=== PATIENT | female | born 1980 | race Caucasian/White ===

== ENCOUNTER 2016-10-30 17:59 | Inpatient (IN) | payer OTHER ==
[2016-10-30 20:18] LABS: Hematocrit 34 % (35-47); Hemoglobin 11.5 g/dl (12.0-16.0); Mean Corpuscular HGB Conc 34 g/dl (31-36); Mean Corpuscular Hemoglobin 30 pg (27-31); Mean Corpuscular Volume 91 fL (80-97); Mean Platelet Volume 7 um3 (7.4-10.4); Red Blood Count 3.77 10^6/ul (4.0-5.4); Red Cell Distribution Width 13 % (10.5-15); White Blood Count 12.7 10^3/ul (3.5-10.8)
[2016-10-30] MEDS ORDERED: ceFOXitin 2 GM IVPREMIX* 2 GM/50 ML BAG IVPB ONE (20:59)
[2016-10-30] MEDS ORDERED: Dibucaine 1% 28.35 GM TUBE PR PRN (21:02)
[2016-10-30] MEDS ORDERED: oxyCODONE/Acetamin 5/325 MG* TAB PO PRN ×2 (21:02)
[2016-10-30] MEDS ORDERED: Witch Hazel PAD* JAR TOPICAL PRN (21:02)
[2016-10-30] MEDS ORDERED: Ketorolac INJ* 30 MG/ML 1 ML VIAL ONE (22:13)
[2016-10-30] MEDS ORDERED: DiMENhydriNATE IV* 50 MG/ML VIAL IV PUSH PRN (22:17)
[2016-10-30] MEDS ORDERED: diPHENhydraMINE IV* 50 MG/ML 1 ml VIAL (BENADRYL) IV PRN (22:17)
[2016-10-30] MEDS ORDERED: fentaNYL* 50 MCG/ML 2 ML VIAL (100 MCG VIAL) IV PRN (22:17)
[2016-10-30] MEDS ORDERED: Nalbuphine* 20 MG/ML 1 ML VIAL IV PRN (22:18)
[2016-10-30] MEDS ORDERED: Naloxone* 0.4 MG/ML 1 ML VIAL IV PRN (22:18)
[2016-10-30] MEDS ORDERED: Naloxone* 2 MG in NS 0.9% 250 ML* 250 ML IV PRN (22:18)
[2016-10-30] MEDS ORDERED: Ondansetron INJ* 2 MG/ML VIAL IV PRN (22:18)
[2016-10-30] MEDS ORDERED: fentaNYL* 50 MCG/ML 2 ML VIAL (100 MCG VIAL) ONE (22:32)
[2016-10-30] MEDS ORDERED: Lidocaine 1% MPF* 2 ML VIAL ONE (23:49)
[2016-10-31] MEDS: Ibuprofen TAB* 600 MG PO SCH ×5 (04:00→22:02)
[2016-10-31 05:47] LABS: Hematocrit 27 % (35-47); Hemoglobin 9.3 g/dl (12.0-16.0); Mean Corpuscular HGB Conc 34 g/dl (31-36); Mean Corpuscular Hemoglobin 31 pg (27-31); Mean Corpuscular Volume 91 fL (80-97); Mean Platelet Volume 7 um3 (7.4-10.4); Red Blood Count 3.01 10^6/ul (4.0-5.4); Red Cell Distribution Width 13 % (10.5-15); White Blood Count 12.4 10^3/ul (3.5-10.8)
--- NOTE | 2016-10-31 06:11 | OP ---
DATE OF OPERATION: 10/30/16 - ROOM #116 DATE OF : 80 SURGEON: Catina Cervantes MD. CASING IN LINE FEEDER: Dr. Arroyo. ANESTHESIOLOGIST: Dr. Gage. ANESTHESIA: Spinal. PRE-OP DIAGNOSIS: 38 plus 5 weeks' gestation, with history of previous C section in labor, and keloid scar. POST-OP DIAGNOSIS: 38 plus 5 weeks' gestation, with history of previous C section in labor, and keloid scar. OPERATIVE PROCEDURE: Repeat low-transverse section and excision of keloid scar. ESTIMATED BLOOD LOSS: 700 cc. URINE OUTPUT: 200 cc. IV FLUIDS: 2000 cc lactated Ringer's. MATERIALS TO LAB: Cord blood. INDICATIONS: This patient was a 35-year-old 2, para 1, at 38 plus 5 weeks' gestation, who was already scheduled for a repeat section at 39 weeks, 2 days from now. The patient presented today in early labor with contractions that were very regular and uncomfortable, about every 4 to 5 minutes. Considering this, we did discuss the option of a trial of labor versus a repeat section at length and the patient desired to proceed with a . Due to the language barrier we did use a medical clerk. She was extensively counseled for the procedure and consent was signed. FINDINGS: Normal-appearing uterus, fallopian tubes, and ovaries. Delivery was productive of a female infant weighing 7 pounds 9 ounces, with Apgars of 9 and 9. Time of delivery was 2128. COMPLICATIONS: None. DESCRIPTION OF PROCEDURE: The risks, benefits, and alternatives were described to the patient, and informed consent was obtained. The patient was taken to the operating room with IV running, where spinal anesthesia was induced and found to be adequate. The patient was prepped and draped in normal sterile fashion in the dorsal supine position with a leftward tilt. The keloid scar of the prior Pfannenstiel wound was excised with a scalpel and handed off. This incision was carried down to the underlying fascia using the Bovie. The fascia was scored in the midline, and the incision was extended using London scissors. The fascia was dissected off the underlying rectus muscles using blunt and sharp dissection. The rectus muscles were in the midline using dissection with a Charito clamp. The peritoneum was then entered bluntly. A bladder blade was placed. A bladder flap was created sharply using Metzenbaum scissors. A low transverse uterine incision was then made with the scalpel. This was carried down to the amniotic membranes. The membranes were then ruptured, productive of clear fluid. The uterine incision was extended using blunt traction. The head was elevated to the level of the incision, and, with fundal pressure, the head delivered without difficulty. The shoulders then were also both delivered and the body followed. The infant had excellent tone and cried immediately on delivery. The cord was doubly clamped and cut. The was then handed to the awaiting parking lot chauffeur. Cord blood was collected. The placenta was delivered with manual extraction. The uterus was then exteriorized and cleared of all clots and debris. The uterine incision was then reapproximated using 0 Polysorb in a running-locked fashion. A second layer of imbricating 0 Polysorb sutures was then also placed for good hemostasis. The posterior cul-de-sac was irrigated with saline. The uterus was then returned to the abdomen. The incision was reinspected and still noted to be hemostatic. The peritoneum was closed with 3-0 Polysorb in a running fashion. The fascia was closed with 0 Polysorb in a running fashion. The subcutaneous tissues were copiously irrigated and made hemostatic using the Bovie. The skin was then closed with 4-0 Monocryl in a subcuticular stitch. A sterile bandage was then placed over the incision. The patient tolerated the procedure well. Sponge, lap, and needle counts were correct x2. [id number]/[facility] #: [id number] [facility]
[2016-10-31] MEDS: Ferrous Gluconate TAB* 324 MG TAB PO SCH ×2 (08:42→21:22)
[2016-10-31] MEDS: Simethicone CHEW TAB* 80 MG PO SCH ×4 (08:42→21:22)
[2016-10-31] MEDS: Docusate CAP* 100 MG PO SCH ×3 (08:43→21:22)
[2016-11-01] MEDS: Ibuprofen TAB* 600 MG PO SCH ×4 (04:21→23:08)
[2016-11-01] MEDS: Ferrous Gluconate TAB* 324 MG TAB PO SCH ×2 (07:50→20:13)
[2016-11-01] MEDS: Simethicone CHEW TAB* 80 MG PO SCH ×4 (07:51→20:13)
[2016-11-01] MEDS: Docusate CAP* 100 MG PO SCH ×3 (07:51→20:14)
[2016-11-02] MEDS: Ibuprofen TAB* 600 MG PO SCH ×2 (05:02→11:09)
[2016-11-02 08:32] VITALS: BP 94/55
[2016-11-02] MEDS: Ferrous Gluconate TAB* 324 MG TAB PO SCH (08:55)
[2016-11-02] MEDS: Docusate CAP* 100 MG PO SCH (08:59)
[2016-11-02] MEDS: Simethicone CHEW TAB* 80 MG PO SCH (08:59)
[2016-11-02] MEDS ORDERED: Tetan/Diph/Pertus SYR(Tdap)* 0.5 ML SYR(BOOSTRIX) use SYR IM ONE (09:08)
== END 2016-11-02 14:08 | disposition home or self-care (01) | DRG 540 ==
LOC: MCHOBOUT 17:59 → MCHOB 19:47
PROVIDERS: ADMIT Obstetrics & Gynecology; ATTEND Obstetrics & Gynecology
PROC: 0HB7XZZ Excision of Abdomen Skin, External Approach (ICD-10-PCS; 2016-10-30)
PROC: 10907ZC Drainage of Amniotic Fluid, Therapeutic from Products of Conception, Via Natural or Artificial Opening (ICD-10-PCS; 2016-10-30)
PROC: 10D00Z1 Extraction of Products of Conception, Low, Open Approach (ICD-10-PCS; principal; 2016-10-30 20:56)
DX: O34.211 Maternal care for low transverse scar from previous cesarean delivery (principal); O60.23X0 Term delivery with preterm labor, third trimester, not applicable or unspecified; N85.8 Other specified noninflammatory disorders of uterus; Z3A.38 38 weeks gestation of pregnancy; Z37.0 Single live birth; O90.81 Anemia of the puerperium; D64.9 Anemia, unspecified
CPT/HCPCS: 36415; 85025; 85027; 86850; 86900; 86901; 88300; 90715; A9270-GY; J1885; J3010